=== PATIENT | born 2000 ===

== ENCOUNTER 2021-09-16 09:27 | Outpatient (RCR) | payer BC, SELFPAY ==
--- NOTE | 2021-09-17 13:10 | PC.NURSE ---
This bond underwriter met with Pt on 09/16/2021 for a scheduled intake assessment for PHP treatment. Pt reported active alcohol and marijuana use in addition to worsening depression and anxiety symptoms. This bond underwriter consulted with the PHP team, regarding use of alcohol and substance,marijuana, it was recommended that the Pt receive detox treatment before engaging in PHP treatment. This bond underwriter called Pt twice on 09/16/2021 on the phone # listed for the purpose of discussing substance abuse treatment however,the phone went directly to voice mail,messages were left both times,Pt never returned the messages. On 09/17/2021,this bond underwriter attempted to contact the Pt again however,the phone went directly to voice mail. This bond underwriter contacted Pt's emergency contact who informed this bond underwriter that the Pt's phone # is incorrect. This bond underwriter spoke with the patient to discuss the teams concern re. alcohol/substance use and the recommendation that Pt receive detox treatment prior to engaging in PHP treatment due to Pt actively using alcohol and marijuana. Pt acknowledged the use and was receptive to alcohol/substance abuse treatment. This bond underwriter provided resources,[facility] and [facility] for Detox/substance abuse treatment. Pt called this bond underwriter to report that they spoke with [facility] today 09/17/2021 and that they are scheduled for admission on 09/18/2021 in the afternoon. However,Pt asked for clarification regarding length of admission,this bond underwriter explained and clarified the process. The Pt was concerned about their school work,not having a cell phone or laptop available for one week and asked for more resources which this bond underwriter provided. This bond underwriter reiterated that once the Pt completes a substance abuse tx and recovery program,the Pt can engage in PHP treatment. Pt stated that she was agreeable with this recommendation. Pt also has the phone # for [facility] Crisis if needed.
== END 2021-09-16 23:59 | disposition home or self-care (01) ==
LOC: HO.PHPA 09:27
PROVIDERS: Visit Provider Psychiatry & Neurology Psychiatry
DX: F41.1 Generalized anxiety disorder (principal); F60.3 Borderline personality disorder; F34.0 Cyclothymic disorder; F64.0 Transsexualism
CPT/HCPCS: 90791

== ENCOUNTER 2021-10-26 08:15 | Outpatient (RCR) | payer BC, SELFPAY ==
[2021-10-07 12:01] VITALS: BMI 24.2
--- NOTE | 2021-10-07 13:33 | PC.ADMIT ---
Patient is a 21 year old Trans gendered male college student who uses they them pronouns and uses the name Sri. Patient initially presented to [facility] advised by their therapist d/t depressive symptoms with SI with no plan or intent and self harming behaviors however patient was advised to go to detox beforehand as they were drinking copious amounts of ETOH and using 4 bowls of marijuana daily. Concerned that patient would detox from ETOH if asked to stop while in the program. Patient went to detox at [facility] from 09/18-09/28/21. Patient continues to struggle with depression and reports passive SI no plan or intent. Patient reports last self harmed by cutting their thighs a few days prior to going into Detox. Patient reports that they have not needed sutures for the cuts as they are superficial. Patient expressed interest in learning healthy coping skills to deal with strong emotions. Patient reports trauma history. Patient withdrew from college to work on their mental health. Patient denied ETOH use since detox however reports using 4 bowls of marijuana yesterday. Patient agrees not to use while they are in the program. Patient is alert and oriented x4. calm and cooperative. Presents with depressed mood and affect. Denied current SI at present. Patient reports they do want to work on SI and self harming behaviors while at [facility]. Patient agreed not to use substances while they are in the program. Medications reconciled with patient and patient blister packs given to them by [facility]. Patient reports taking medications as prescribed.
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
--- NOTE | 2021-10-08 16:40 | PC.NURSE ---
Case opened in treatment team.
--- NOTE | 2021-10-12 16:36 | PC.NURSE ---
I LM for pt asking them to pls call re: schedule and aftercare.
--- NOTE | 2021-10-13 14:07 | PC.NURSE ---
I called and LM for pt. I told them in group I'd be calling, and they agreed, but the phone went straight to . I asked them to pls call re: aftercare, schedule, etc.
--- NOTE | 2021-10-13 16:18 | P.PNPSP_ITS ---
Subjective Subjective Date of Service: 10/13/21 Reason For Visit: anxiety, depression, alcohol abuse severe Interim History: Patient evaluated today and upon interview they Im okay. Says their medications are okay, I dont hate them. They complain of a loss of focus, doing work for class is super hard, taking indigenous organizing. Sleep is alexis, thinks its the remeron. Appetite is pretty high throughout the day, says this is triggering due to hx of disordered eating. Energy is low. Mood is not bad, rates it as a 5/10. Anxiety is still there. Says meds are helping with my urge to self harm and stabilize my moods. Open to discontinuing zyprexa. Has psychiatry appointment on .? Medication Compliance: Yes Side effects from medications: Yes Attending Groups: Yes Review of Systems Acute medical concerns: No Medical Review of Systems: unchanged Mental Status Exam Mental Status Exam Narrative: Well-developed, well-nourished individual, in NAD.? Appears stated age.? No evidence of any type of intoxication or withdrawals reported or observed.? Was fully engageable and participated in interview. Patient Appearance: Well Groomed and Appropriate Patient Orientation: Person, Place, Time and Situation Level of Consciousness: Awake, Appropriate and Alert Patient Behavior: Appropriate, Cooperative and Good Eye Contact Mood Description: Appropriate and Depressed Affect Description: Depressed and Flat Patient Cognition Impaired: No Ability to Follow Directions: Excellent Speech Pattern: Clear, Appropriate and Coherent Memory Description: Intact Hallucinations: None Thought Process: Intact Thought Content: positive for Intact and positive for Suicidal Ideation (Passive, no intent or plan.) Depressive Symptoms: Changes in Appetite (fluctuates), Loss of Int. in Activity, Feelings of Worthlessness, Hopelessness, Feelings of Guilt, Unhappiness and Thoughts of /Suicide (passive, no intent/plan) Judgment: Fair Diagnostics Vital Signs (24Hr): BMI result Body Mass Index 24.2 Assessment & Plan Assessment & Plan (1) Bipolar 2 disorder, major depressive episode: Status: Acute Code(s): F31.81 - Bipolar II disorder Assessment and Plan: Reports positive benefit on medication, reports mood is stable at this time. Denies SI/SIB upon inquiry. Sleep is good. Discussed discontinuing olanzapine 2.5 mg as this may be contributing to increased appetite, which pt reports is triggering. (2) PTSD (post-traumatic stress disorder): Status: Acute Code(s): F43.10 - Post-traumatic stress disorder, unspecified Assessment and Plan: Patient reports extensive history of trauma.? Has been nonadherent on prazosin but denies nightmares. (3) Alcohol use disorder, severe, dependence: Status: Acute Code(s): F10.20 - Alcohol dependence, uncomplicated Assessment and Plan: Patient acknowledges that they had been drinking heavily as well as using cannabis heavily prior to going to [facility].? They found the program helpful, but states ?barely?.? They stated that they were able to take 3-4 quotes away from program with them, that they find helpful.? They do not currently identify as somebody with an alcohol or cannabis use disorder. (4) Cannabis abuse, uncomplicated: Status: Acute Code(s): F12.10 - Cannabis abuse, uncomplicated Plan 1. Continue with current [facility] plan of care. 2. Continue with current medication regimen. 3. Follow-up as per protocol. Patient educated on: medication risk/benefits Certification I certify that partial hospital treatment is medically necessary due to the symptoms and problems resulting from the patient's mental illness and the failure to treat the patient at the partial hospital level of care would likely result in the patient requiring inpatient psychiatric care which could not be prevented at a less intensive level of care. I spent minutes with the patient and/or on the patient floor today, greater than?50% of which was spent counseling/coordinating care. Discharge Plan Discharge Attending provider: Kris Phillips Additional Instructions: Intake appointment over telehealth/zoom at [facility] for the [facility] program for eating Disorders on 10/26/21 at 10am. Appointment with med provider MARY JO Mcclendon ([phone]) on 11/02/21 at 4pm. Appointment (telehealth) with current therapist Gayathri Benson ([phone]) on , 10/20/21 at 5pm. Intake is pending for a new therapist at [place] [facility] ([facility])- call . Medications: New fluoxetine [Prozac] 20 mg capsule 20 mg PO DAILY Qty: 30 0RF Continued oxcarbazepine [Trileptal] 300 mg Tablet 300 mg PO BID Qty: 30 0RF mirtazapine [Remeron] 15 mg Tablet 15 mg PO BEDTIME Qty: 30 0RF aripiprazole [Abilify] 5 mg Tablet 5 mg PO DAILY Qty: 30 0RF Discontinued olanzapine [Zyprexa] 2.5 mg Tablet 2.5 mg PO BEDTIME 0RF topiramate [Topamax] 50 mg Tablet 50 mg PO BEDTIME 0RF duloxetine [Cymbalta] 30 mg Capsule,Delayed Release(Dr/Ec) 30 mg PO DAILY 0RF No Action testosterone [AndroGel] 1 % (25 mg/2.5gram) Gel In Packet 2 packet TRANSDERMAL DAILY 0RF Label Comments: Patient stated they take 2 packs daily. Stand Alone Forms: Patient Portal Discharge page
--- NOTE | 2021-10-14 08:50 | PC.NURSE ---
I again attempted to call pt. Phone went straight to again. I LM anyway asking them to please call.
--- NOTE | 2021-10-14 16:06 | PC.NURSE ---
I spoke to pt onscreen after the 4th group. It appears we had the wrong number for pt and this has been corrected. (the correct # is [phone]). Pt said the program is going well, and that they do feel better emotionally. They report sobriety and have not self harmed despite urges. They also report an increase in disordered eating. They are on the wait list for [facility], and I agreed to call Sheila to coordinate care. (Sheila [phone]). Discussed length of stay, which depends on admission to [place] [facility]. I am currently on hold with Sheila and have been on hold for 54 minutes. I will continue to try to reach [facility].
--- NOTE | 2021-10-16 14:54 | PC.NURSE ---
On 10/14/21, I waited on hold for [employer] for 1 hour and 43 minutes before it eventually hung up on me. I am currently on hold again, and it's now been 38 minutes. In the meantime, I have sent an email through [employer] website asking for a call.
--- NOTE | 2021-10-16 16:02 | PC.NURSE ---
After 2 hours on hold with [facility], I called and LM for pt asking if they have an alternative number.
--- NOTE | 2021-10-16 16:45 | HO.PHPPROGNO ---
Subjective Subjective Date of Service: 10/16/21 Reason For Visit: anxiety, depression, alcohol abuse severe Guardianship: No Medical Problems Affecting Mental Status: No Interim History: Patient reports difficulty with pain after eating. Considering change to an SSRI from Cymbalta, as they did not experience the pain when on an SSRI. Has urges to self-harm, with plan/intent. No SI/HI. Plans to utilize coping skills and distraction techniques to help prevent SIB. Continues abstinence regarding alcohol use. Medication Compliance: Yes Side effects from medications: Yes (Possible GI upset/discomfort.) Attending Groups: Yes Review of Systems Acute medical concerns: Yes GI pain, awaiting Gastroenterology appointment. Medical Review of Systems: changed Review of Systems Review of Systems Yes all other systems are reviewed and are negative Constitutional: Reports no additional constitutional complaints Gastrointestinal: Reports abdominal pain and Reports early satiety Mental Status Exam Mental Status Exam Narrative: NAD. Alert and oriented, easily engageable, cooperative. Current thoughts of SIB, with intent/plan. No SI/HI. Utilizing coping skills and techniques to avoid SIB. Patient Appearance: Well Grooomed and Appropriate Patient Orientation: Person, Place, Time and Situation Level of Consciousness: Awake, Appropriate and Alert Patient Behavior: Appropriate, Cooperative and Good Eye Contact Mood Description: Appropriate and Depressed Affect Description: Appropriate Patient Cognition Impaired: No Ability to Follow Directions: Excellent Speech Pattern: Clear, Appropriate and Coherent Memory Description: Intact Hallucinations: None Thought Process: Intact Thought Content: positive for Intact Depressive Symptoms: Changes in Appetite (fluctuates), Loss of Int. in Activity, Feelings of Worthlessness, Hopelessness, Feelings of Guilt and Unhappiness Judgement: Fair Diagnostics Vital Signs (24Hr): BMI result Body Mass Index 24.2 Assessment & Plan Assessment & Plan (1) Bipolar 2 disorder, major depressive episode: Status: Acute Code(s): F31.81 - Bipolar II disorder Assessment and Plan: Patient reports feeling relatively stable, except for thoughts of SIB. Actively utilizing coping skills and techniques to avoid actual SIB. No SI/HI, no safety concern at this time. Patient requests change of medications, due to upset GI, attributes this to possibly Cymbalta, as did not have this when taking SSRI Lexapro in past. Discussed other SSRI options, including fluoxetine, which has been shown to be helpful with binge eating disorder. They were willing to try this. Satisfied with Trileptal, does not wish to return soon Lamictal at this time. (2) PTSD (post-traumatic stress disorder): Status: Acute Code(s): F43.10 - Post-traumatic stress disorder, unspecified (3) Alcohol use disorder, severe, dependence: Status: Acute Code(s): F10.20 - Alcohol dependence, uncomplicated Assessment and Plan: Patient reports they are not craving alcohol in any way, and continue to abstain. Discussed Topamax, which was started in rehab setting. Would prefer to stop it at this time. Discussed other medication options such as a camper sate, if cravings return. They were willing to consider this. (4) Cannabis abuse, uncomplicated: Status: Acute Code(s): F12.10 - Cannabis abuse, uncomplicated Plan 1. Olanzapine has been discontinued. 2. Topamax discontinued. 3. Duloxetine discontinued, last dose was this am. 4. Start fluoxetine 20 mg daily tomorrow. 5. Follow-up as per protocol. 6. Continue with current [facility] plan of care. Patient educated on: diagnosis, medication risk/benefits, substance abuse and therapeutic strategies Informed Consent: understands Reason for contiued partial hosp. stay Substantial Risk for: harm to self, inability to function, rapid decompensation and med/psych decompensation Certification I certify that partial hospital treatment is medically necessary due to the symptoms and problems resulting from the patient's mental illness and the failure to treat the patient at the partial hospital level of care would likely result in the patient requiring inpatient psychiatric care which could not be prevented at a less intensive level of care. I spent ____30__ minutes with the patient and/or on the patient floor today, greater than?50% of which was spent counseling/coordinating care. Discharge Plan Discharge Attending provider: Kris Phillips Medications: No Action oxcarbazepine [Trileptal] 300 mg Tablet 300 mg PO BID 0RF olanzapine [Zyprexa] 2.5 mg Tablet 2.5 mg PO BEDTIME 0RF mirtazapine [Remeron] 15 mg Tablet 15 mg PO BEDTIME 0RF testosterone [AndroGel] 1 % (25 mg/2.5gram) Gel In Packet 2 packet TRANSDERMAL DAILY 0RF Label Comments: Patient stated they take 2 packs daily. aripiprazole [Abilify] 5 mg Tablet 5 mg PO DAILY 0RF topiramate [Topamax] 50 mg Tablet 50 mg PO BEDTIME 0RF duloxetine [Cymbalta] 30 mg Capsule,Delayed Release(Dr/Ec) 30 mg PO DAILY 0RF Stand Alone Forms: Patient Portal Discharge page Telehealth Telehealth Location of provider rendering services: practice address Location of patient: address on file Patient Identification confirmed using: Name, : Yes Telehealth method: video Patient verbally consented to treatment: Yes Patient verbally consented to billing insurance company: Yes Patient informed of any privacy concerns related to visit: Yes Minutes spent on Phone/Video with Pt.: 20
--- NOTE | 2021-10-20 13:25 | PC.NURSE ---
After waiting on hold for [facility] intake line again, I tried several other prompts and finally was directed to their PHP in [place]. I spoke to staff and explained that pt is supposedly on the wait list for PHP, and that per pt, [facility] has requested to speak with me. She took my name and number and said she will relay the information to the intake team. She said hopefully they will get back to you today .
--- NOTE | 2021-10-20 19:23 | P.PNPSP_ITS ---
Subjective Subjective Date of Service: 10/20/21 Reason For Visit: anxiety, depression, alcohol abuse severe Interim History: Patient seen and discussed with team. Patient evaluated today and upon interview they reports they are honestly not doing great. Says their stomach pain is a little bit less since discontinuing Zyprexa, Topamax, and Cymbalta. They did not start Prozac yet. Appetite is lower since stopping zyprexa. Energy is not incredibly low, acknowledges that they are not in bed all day, but still struggling to go outside and do things. Medication Compliance: Yes Side effects from medications: No Attending Groups: Yes Review of Systems Acute medical concerns: No Medical Review of Systems: unchanged Mental Status Exam Mental Status Exam Narrative: NAD.? Alert and oriented, easily engageable, cooperative. Current thoughts of SIB, with intent/plan. No SI/HI. Utilizing coping skills and techniques to avoid SIB. Patient Appearance:?Well Groomed and Appropriate Patient Orientation:?Person, Place, Time and Situation Level of Consciousness:?Awake, Appropriate and Alert Patient Behavior:?Appropriate, Cooperative and Good Eye Contact Mood Description:?Appropriate and Depressed Affect Description:?Appropriate Patient Cognition Impaired:?No Ability to Follow Directions:?Excellent Speech Pattern:?Clear, Appropriate and Coherent Memory Description:?Intact Hallucinations:?None Thought Process:?Intact Thought Content:?positive for Intact Depressive Symptoms:?Changes in Appetite (fluctuates), Loss of Int. in Activity, Feelings of Worthlessness, Hopelessness, Feelings of Guilt and Unhappiness Judgment:?Fair Diagnostics Vital Signs (24Hr): BMI result Body Mass Index 24.2 Assessment & Plan Assessment & Plan (1) Bipolar 2 disorder, major depressive episode: Status: Acute Code(s): F31.81 - Bipolar II disorder Assessment and Plan: Patient reports feeling relatively stable, currently denies SI/SIB.? No safety concern at this time. Has not started fluoxetine yet. Satisfied with Trileptal, does not wish to return soon Lamictal at this time. (2) Alcohol use disorder, severe, dependence: Status: Acute Code(s): F10.20 - Alcohol dependence, uncomplicated Assessment and Plan: Patient reports they are not craving alcohol in any way, and continue to abstain.? Discussed Topamax, which was started in rehab setting.? Would prefer to stop it at this time.? Discussed other medication options such as a camper sate, if cravings return.? They were willing to consider this. (3) PTSD (post-traumatic stress disorder): Status: Acute Code(s): F43.10 - Post-traumatic stress disorder, unspecified (4) Cannabis abuse, uncomplicated: Status: Acute Code(s): F12.10 - Cannabis abuse, uncomplicated Plan 1. Start fluoxetine 20 mg daily tomorrow. 2. Follow-up as per protocol. 3. Continue with current [facility] plan of care. Patient educated on: medication risk/benefits Certification I certify that partial hospital treatment is medically necessary due to the symptoms and problems resulting from the patient's mental illness and the failure to treat the patient at the partial hospital level of care would likely result in the patient requiring inpatient psychiatric care which could not be prevented at a less intensive level of care. I spent minutes with the patient and/or on the patient floor today, greater than?50% of which was spent counseling/coordinating care. Discharge Plan Discharge Attending provider: Kris Phillips Additional Instructions: Intake appointment over telehealth/zoom at [facility] for the [facility] LGBTQ PHP program for eating Disorders on 10/26/21 at 10am. Appointment with med provider MARY JO Mcclendon ([phone]) on 11/02/21 at 4pm. Appointment (telehealth) with current therapist Gayathri Benson ([phone]) on , 10/20/21 at 5pm. Intake is pending for a new therapist at [place] for [facility] ([facility])- call . Medications: New fluoxetine [Prozac] 20 mg capsule 20 mg PO DAILY Qty: 30 0RF Continued oxcarbazepine [Trileptal] 300 mg Tablet 300 mg PO BID Qty: 30 0RF mirtazapine [Remeron] 15 mg Tablet 15 mg PO BEDTIME Qty: 30 0RF aripiprazole [Abilify] 5 mg Tablet 5 mg PO DAILY Qty: 30 0RF Discontinued olanzapine [Zyprexa] 2.5 mg Tablet 2.5 mg PO BEDTIME 0RF topiramate [Topamax] 50 mg Tablet 50 mg PO BEDTIME 0RF duloxetine [Cymbalta] 30 mg Capsule,Delayed Release(Dr/Ec) 30 mg PO DAILY 0RF No Action testosterone [AndroGel] 1 % (25 mg/2.5gram) Gel In Packet 2 packet TRANSDERMAL DAILY 0RF Label Comments: Patient stated they take 2 packs daily. Stand Alone Forms: Patient Portal Discharge page
--- NOTE | 2021-10-21 14:43 | PC.NURSE ---
I spoke to pt who received a direct contact at [facility]. With pt's permission, I called and spoke to this person- Cora ([phone]). Cora works at the [employer]. She said Pt has been on the wait list for some time, and I shared about how pt is doing in groups. I told her pt would be ready to discharge from [facility] upon having an intake at [place]. Cora said she believes they can get pt into [facility] with little to no wait time in between programs. She said she will contact her supervisor [employer] to obtain an intake time and date, and that she'd get back to me via email when she obtains this. I then emailed pt to give them this info.
--- NOTE | 2021-10-22 14:34 | PC.NURSE ---
Pt informed me that they are in need of a therapist, as the one they are seeing will soon not be able to see them any more due to school ending. Pt agreed [facility] for [facility].
--- NOTE | 2021-10-23 08:35 | PC.NURSE ---
At pt's request, I completed and faxed over a referral to [facility] for pt to obtain a new therapist.
--- NOTE | 2021-10-23 12:00 | PC.NURSE ---
Received an email from PASCUAL Hobbs (erroneously spelled Cora in previous notes) at [facility]. She said pt will be able to have an intake at [facility] for eating disorders on 10/27/2019. I spoke to pt and they are aware and pleased about this.
--- NOTE | 2021-10-23 14:25 | PC.NURSE ---
Called patient 2 times and left a voice mail for them to call me back regarding discharge. Patient did not call me back.
--- NOTE | 2021-10-23 14:37 | PC.NURSE ---
I called [place] [facility] [email or web address] to see about obtaining an intake appt for pt, as they are discharged today. I was told that they never received the referral (despite our fax confirmation). Gin-faxed this referral.
--- NOTE | 2021-10-23 14:46 | PC.NURSE ---
I called and LM for pt's current therapist, Gayathri Benson informing her of pt's successful discharge from [facility], and their clinical presentation at discharge.
== END 2021-10-27 09:29 | disposition home or self-care (01) ==
LOC: HO.PHPA 08:15
PROVIDERS: Visit Provider Psychiatry & Neurology Psychiatry
DX: F31.81 Bipolar II disorder (principal); F43.10 Post-traumatic stress disorder, unspecified; F10.20 Alcohol dependence, uncomplicated; F12.10 Cannabis abuse, uncomplicated
CPT/HCPCS: 90791; 90853